=== PATIENT | female | born 1960 | race Caucasian/White ===

== ENCOUNTER 2020-12-05 01:42 | Outpatient (CLI) | payer OTHER, SELFPAY ==
[2020-12-05 13:20] LABS: CREATININE 0.8 mg/dL (0.55-1.02)
[2020-12-05] MEDS: Normal Saline - Diluent 50 ML VIAL IV (13:29)
[2020-12-05] MEDS: Omnipaque 350 MG/ML 100 ML BTL IJ (13:30)
--- NOTE | 2020-12-05 13:33 | DI.CT_ITS ---
EXAM: CT CHEST W CLINICAL HISTORY: AXILLARY LYMPHADENOPATHY,R59.0,ENLARGED LYMPH NODES. TECHNIQUE: Multi planar reconstructions were performed. CONTRAST MATERIAL: Omnipaque 350; 70 cc COMPARISON: No exams were available for comparison FINDINGS: CHEST: LUNGS: There is a 3 millimeter nodule in the peripheral aspect of the right lower lobe. No other sig nificant focal right lung findings. No pleural effusion. There are no significant focal findings in the opposite-left lung and there is no left pleural effusion. There are no significant focal findin gs in the trachea and mainstem bronchi. There is no bronchiectasis. MEDIASTINUM: There is no hilar nor mediastinal adenopathy. There is no subcarinal adenopathy. Visual ized thyroid unremarkable. There is no supraclavicular adenopathy. However, there are enlarged axil froylan lymph nodes on the right side, the largest of these measuring 1.6 by 1.0 centimetres. No abnorm al fluid collection or streaking in the right axilla. There is a single enlarged lymph node in the o pposite-left axilla which measures 1.5 x 1.0 cm. No obvious breast masses. CARDIAC: Heart size is normal. There is no pericardial effusion.Caliber of the thoracic aorta is wit hin normal limits. VISUALIZED UPPER ABDOMEN:There are no significant adrenal masses. Spleen size is normal. No obvious abnormality in the visualized aspects of the liver. No adenopathy in the epigastric region. OSSEOUS: No significant osseous lesions.. IMPRESSION: 1. There is a single pulmonary finding which is a 3 millimeter nodule in the peripheral aspect right lower lobe. No other focal pulmonary findings. No pleural effusions. No hilar nor mediastinal janette opathy. 2. The main finding here is axillary adenopathy, more prominent on the right side. Close follow-up t o rule out lymphoma recommended. 3. Recommend CT scan of the abdomen pelvis and soft tissues of the neck. Sign rib RADIATION DOSE DELIVERED: 493.4mGy.cm Total DLP DATA REPOSITORY: All CT scans at this facility are submitted to the National Radiology Data Registry (NRDR) Dose Index Registry (DIR) with the [employer] ([employer]). RADIATION OPTIMIZATION: All CT scans at this facility use at least one of these dose optimization te chniques: automated exposure control; mA and/or kV adjustment per patient size (includes targeted exa ms where dose is matched to clinical indication); or iterative reconstruction.
== END 2020-12-05 02:02 ==
PROVIDERS: PCP Internal Medicine; Visit Provider Internal Medicine
DX: R59.0 Localized enlarged lymph nodes (principal); R91.1 Solitary pulmonary nodule
CPT/HCPCS: 71260; 82565; J3490